=== PATIENT | female | born 1975 | race African-American/Black ===

== ENCOUNTER 2017-12-29 04:01 | Emergency (ER) | payer OTHER ==
[~2017-12-29] VITALS: Ht 175.3 cm; Wt 127.2 kg
[2017-12-29] MEDS ORDERED: SODIUM CHLORIDE 0.9% 1,000 ML IV ONE (04:12)
[2017-12-29] MEDS ORDERED: ACTIVATED CHARCOAL 50 G/240 ML TUBE PO ONE (04:15)
[2017-12-29] MEDS ORDERED: LORAZEPAM 2MG/ML CPJ IV ONE (04:30)
[2017-12-29 04:59] LABS: BASOPHILS % 0.4 % (0.0-2.0); EOSINOPHILS % 0.1 % (0.0-5.0); HEMATOCRIT. 39.9 % (36.0-48.0); LYMPHOCYTES % 22.2 % (20.0-50.0); MEAN CORPUSCULAR HEMOGLOBIN 27.9 pg (28.0-32.0); MEAN CORPUSCULAR VOLUME 79.8 fL (81.0-99.0); MEAN PLATELET VOLUME 9.9 fl (7.4-10.4); MONOCYTES % 6.9 % (2.0-8.0); NEUTROPHILS % 70.4 % (40.0-76.0); PLATELET 280 x1000/uL (130-400); RED CELL DISTRIBUTION WIDTH 15.1 % (11.6-14.6)
[2017-12-29 05:01] LABS: CHLORIDE 102 mEq/L (98-107); ETHANOL BLOOD < 10 mg/dL
[2017-12-29 05:04] LABS: PHOSPHORUS 3.1 mg/dL (2.5-4.9)
[2017-12-29] MEDS ORDERED: POTASSIUM CHLORIDE 20MEQ TABLET SR PO ONE (05:15)
[2017-12-29] MEDS ORDERED: POTASSIUM CHLORIDE INJ 40 MEQ in DEXT 5% WATER 500 ML IV ONE (05:15)
[2017-12-29] MEDS ORDERED: PANTOPRAZOLE SODIUM 40 MG/VIAL IV ONE (05:30)
[2017-12-29] MEDS ORDERED: ONDANSETRON HCL 4MG/2ML VIAL IM ONE (05:30)
[2017-12-29] MEDS ORDERED: POTASSIUM CHLORIDE INJ 40 MEQ in DEXT 5% WATER 500 ML IV SCH (06:30)
[2017-12-29 13:40] LABS: CLARITY URINE TURBID (CLEAR); COLOR URINE ORANGE (YELLOW); KETONES URINE 1+ (NEGATIVE); LEUKOCYTE ESTERASE URINE 1+ (NEGATIVE); NITRITE URINE NEGATIVE (NEGATIVE); OCCULT BLOOD URINE 3+ (NEGATIVE); PROTEIN URINE 2+ (NEGATIVE); SPECIFIC GRAVITY URINE 1.015 (1.005-1.030)
[2017-12-29 14:00] LABS: *AMPHETAMINES SCREEN URINE NEGATIVE (NEGATIVE); *BARBITURATES SCREEN URINE NEGATIVE (NEGATIVE); *BENZODIAZEPINES SCREEN URINE NEGATIVE (NEGATIVE); METHADONE URINE SCREEN NEGATIVE (NEGATIVE); OPIATES URINE SCREEN NEGATIVE (NEGATIVE); PHENCYCLIDINE URINE SCREEN NEGATIVE (NEGATIVE)
[2017-12-29 14:13] LABS: *COCAINE SCREEN URINE PRESUMTIVE POSITIVE (NEGATIVE); CANNABINOID URINE SCREEN PRESUMTIVE POSITIVE (NEGATIVE)
[2017-12-29] MEDS: LORAZEPAM 0.5MG TABLET PO PRN (23:00)
[2017-12-30] MEDS: LORAZEPAM 0.5MG TABLET PO PRN (22:46)
[2017-12-31 18:53] LABS: CHLORIDE 104 mEq/L (98-107)
[2018-01-01 09:15] VITALS: BP 118/60
== END 2018-01-01 10:16 ==
LOC: ER 04:04
DX: T37.5X2A Poisoning by antiviral drugs, intentional self-harm, initial encounter (principal); F20.9 Schizophrenia, unspecified; Z91.5 Personal history of self-harm; Y92.89 Other specified places as the place of occurrence of the external cause
CPT/HCPCS: 36415; 80048; 80053; 80305; 80307; 80329; 81003; 81025; 83605; 83735; 84100; 85025; 93005; 96361; 96365; 96366; 96372; 96375; 99291; C9113; G0482; J2060; J2405; J3480; J7030; Z7610; J7060